=== PATIENT | male | born 2000 | race Caucasian/White ===

== ENCOUNTER → 2023-12-15 | Outpatient (REF) | payer OTHER, SELFPAY | LOC: DHSLP | PROVIDERS: ATTENDING PHYSICIAN Internal Medicine Critical Care Medicine; FAMILY PHYSICIAN Pediatrics | DX: G47.19 Other hypersomnia (principal); G47.00 Insomnia, unspecified; R06.83 Snoring | CPT/HCPCS: 95800 ==

== ENCOUNTER → 2024-09-02 13:19 | Outpatient (REF) | payer BC, SELFPAY | LOC: DHSLP 13:19 | PROVIDERS: ATTENDING PHYSICIAN Internal Medicine Critical Care Medicine; FAMILY PHYSICIAN Internal Medicine | DX: G47.33 Obstructive sleep apnea (adult) (pediatric) (principal); G47.61 Periodic limb movement disorder | CPT/HCPCS: 95810 ==

== ENCOUNTER 2025-05-12 21:27 | Observation (INO) | payer BC, SELFPAY ==
[2025-05-12 18:34] VITALS: BP 159/81
--- NOTE | 2025-05-12 19:01 | ED.GENMED ---
History of Present Illness
General
Chief Complaint: Breathing Problem
Time Seen by Provider: 05/12/25 18:44
History of Present Illness
History of Present Illness:
24-year-old male without significant past medical history presenting to the emergency department for concern of pneumothorax. Patient reports that earlier today was playing football. He went to reach for the ball and then came down to the ground,
landing directly on the football on his left chest. He said that he immediately felt a pop. He has since then had some difficulty breathing. He went to urgent care and they told him that he has a small pneumothorax, advised that he go to the
hospital. Notes pain to the left chest wall over the left back. Denies any history of lung injuries in the past. Denies any additional injuries from the fall. Denies fever or cough. Denies additional acute medical complaints
Phy Exam
Physical Exam
Physical Exam:
General: Well-appearing, no clinical signs of dehydration, nontoxic and in no acute distress
HEENT: protecting airway
Neck: appears supple
CV: Normal heart rate, regular rhythm
Resp: No accessory muscle use, no increased work of breathing, lungs clear to auscultation bilaterally. Generalized tenderness to the left anterior chest wall and left thoracic musculature along the rib angles. No crepitus. No ecchymosis.
Abd: Soft and non-distended, no tenderness to palpation, normal bowel sounds
Extremities: No deformities, no swelling, no erythema, pulses and sensation intact
Neuro: alert, no focal neurologic deficit
: deferred
Rectal: deferred
Psych: Normal affect
Skin: Intact
Course
Orders/Labs/Results
Orders:
Orders
05/12/25 18:43
CR Chest - 2 Views Urgent
Comment:
Reason For Exam: sob after L-chest injury
05/12/25 18:52
Ketorolac [Toradol] 15 mg IV NOW STA
05/12/25 18:57
Complete Blood Count/With Diff Urgent
Comprehensive Metabolic Panel Urgent
Abnormal Lab Results
05/12/25
18:57
Lymphocytes % 18.1 L %
(20.5-51.1)
Chloride 111 H mmol/L
(98-107)
BUN 21 H mg/dl
(9-20)
Glucose 122 H mg/dl
(70-99)
05/12/25 18:57
05/12/25 18:57
Vital Signs
Initial and Last Documented VS:
Initial Vital Signs
Temp Pulse Resp BP Pulse Ox
98.8 F 87 16 159/81 99
05/12/25 18:34 05/12/25 18:34 05/12/25 18:34 05/12/25 18:34 05/12/25 18:34
Last Documented Vital Signs
Temp Pulse Resp BP Pulse Ox
98.8 F 87 16 159/81 99
05/12/25 18:34 05/12/25 18:34 05/12/25 18:34 05/12/25 18:34 05/12/25 19:03
MDM/Problems Addressed
MDM/Problems Addressed:
24-year-old male presenting to the emergency department with concern of pneumothorax after a football injury. Vital signs on arrival are significant for mild hypertension.
On exam, patient is resting comfortably, no acute distress. Oxygen within normal limits. Patient with generalized tenderness to the chest wall. Patient arrives with report from urgent care, discusses a small left apical pneumothorax. Patient
subsequently placed on nasal cannula. Will plan for chest x-ray imaging. Screening laboratory analysis. Toradol administered for pain
20:00 -chest x-ray shows small apical pneumothorax. No obvious signs of rib fractures. Did discuss with CT surgery, plan for observation patient on nasal cannula. Patient and mother updated
*Pulse Oximetry
SaO2: 99
*Critical Care Note
Total Time (30-74mins, 75-104mins- exclusive of procedures): Not Applicable
ED Attending Note
-
Portions of this chart may have been created with voice recognition software.� Occasional wrong word or��sound alike� substitutions may have occurred due to the inherent limitations of voice recognition software.
Discharge Plan
Departure
Prescriptions:
No Action
ibuprofen 400 MG tablet
400 mg PO TID 14 Days 0RF
Referrals:
UNKNOWN - PT DOES,NOT KNOW [Family Provider]
Interventions
Interventions:
*Risk Screen - Suicide Last Done: 05/12/25 18:34
*General Assessment Last Done: 05/12/25 19:33
*Neglect/Abuse Screening Last Done: 05/12/25 18:34
*ED- Fall Risk Assessment Last Done: 05/12/25 19:33
*ED COVID-19 Vaccine History Last Done: 05/12/25 19:33
ED- Cardiac Assessment Last Done: 05/12/25 19:33
ED- Pulmonary Assessment Last Done: 05/12/25 19:33
Discharge Date and Time
Print Language: BERMUDIAN
[2025-05-12] MEDS: TORADOL 15 MG IV (19:09)
[2025-05-12 19:14] LABS: % Basophils 0.5 % (0-2); % Eosinophils 1.6 % (0-6); % Immature Granulocytes 0.3 % (0-0.5); % Lymphocytes 18.1 % (20.5-51.1); % Monocytes 7.6 % (1.7-9.3); % Neutrophils 71.9 % (42.2-75.2); Absolute Eosinophils 0.1 10^3/uL (0-0.7); Absolute Lymphocytes 1.4 10^3/uL (1.2-3.4); Absolute Monocytes 0.6 10^3/uL (0.1-0.6); Absolute Neutrophils 5.5 10^3/uL (1.4-6.5); Hematocrit 40.9 % (39.0-52.0); Hemoglobin 14.4 g/dL (13.0-18.0); Mean Corp Hgb Conc. 35.2 g/dL (33.0-37.0); Mean Corpuscular Volume 82.3 fL (80.0-94.0); Nucleated Red Blood Cells % 0 % (-); Platelet Count 254 10^3/uL (130-400); Red Blood Cell Count 4.97 10^6/uL (4.70-6.10); Red Cell Dist. Width 12.7 % (11.5-14.5); White Blood Cell Count 7.7 10^3/uL (4.8-10.8)
[2025-05-12 19:35] LABS: ALT (SGPT) 40 U/L (0-50); AST (SGOT) 50 U/L (17-59); Albumin 4.9 g/dl (3.5-5.0); Alkaline Phosphatase 69 U/L (38-126); Blood Urea Nitrogen 21 mg/dl (9-20); Calcium 9.3 mg/dl (8.4-10.2); Carbon Dioxide 25 mmol/L (22-30); Chloride 111 mmol/L (98-107); Glucose 122 mg/dl (70-99); Potassium 4.5 mmol/L (3.5-5.1); Sodium 144 mmol/L (135-145); Total Bilirubin 0.8 mg/dl (0.2-1.3); Total Protein 7.8 g/dl (6.3-8.2); eGFR > 60.00
[2025-05-12 20:30] VITALS: BP 143/74
--- NOTE | 2025-05-12 20:41 | HPS.HSE ---
Family Physician
-
Family Physician: NOT KNOW UNKNOWN - PT DOES
Chief Complaint
-
concern of pneumothorax.
History of Present Illness
24M No significant PMHX seen at ER for concern of pneumothorax.
- earlier today was playing football, reachedd for the ball and then came down to the ground, landing directly on the football on left chest.
- he immediately felt a pop. He has since then had some difficulty breathing.
- seen urgent care and they told him that he has a small pneumothorax, advised that he go to the hospital.
- pain radiated from the the left chest wall over the left back.
- Denies any history of lung injuries in the past.
- Denies any additional injuries from the fall.
- Denies fever or cough.
- Denies additional acute medical complaints
Medical History
Past Medical History
Past Medical History: Reports None
Past Surgical History: Reports None
Social History
Tobacco: Non-smoker
Alcohol: Occasional
Family History
Family History: Not pertinent
Allergies / Home Medications
Allergies reflects when Allergies were last updated in [facility].
Home Medications with original date entered in [facility]
Allergy/Medication List:
Allergies
Allergy/AdvReac Type Severity Reaction Status Date / Time
No Known Allergies Allergy Verified 05/12/25 18:32
Home Medications
ibuprofen 400 mg tablet 400 mg PO TID 14 days 07/04/18
Review of Systems
-
Constitutional: Reports No Symptoms
EENT: Reports No Symptoms
Respiratory: Reports See HPI
Cardiac: Reports No Symptoms
Abdomen/GI: Reports No Symptoms
: Reports No Symptoms
Musculoskeletal: Reports See HPI
Skin: Reports No Symptoms
Neurological: Reports No Symptoms
Endocrine: Reports No Symptoms
Hematologic/Lymphatic: Reports No Symptoms
Psych: Reports No Symptoms
Physical Exam
Vital Signs
Vital Signs
Temp Pulse Resp BP Pulse Ox
98.8 F 87 16 159/81 99
05/12/25 18:34 05/12/25 18:34 05/12/25 18:34 05/12/25 18:34 05/12/25 19:03
Physical Exam
General: Well Developed, Well Nourished and No Apparent Distress
HEENT: NormoCephalic and Moist mucous membranes
Respiratory: Clear and Other (Generalized tenderness to the left anterior chest wall and left thoracic musculature along the rib angles. No crepitus. No ecchymosis.)
Cardiac: S1/S2 and Regular Rhythm; No Murmur or Rub
GI: Soft, Non Tender, Non Distended and Normal Bowel Sounds; No Organomegaly
Rectal: Deferred by Provider
Musculoskeletal: No Clubbing, No Cyanosis and No Edema
Skin: No Rash
Neuro: Nonfocal/grossly intact
Laboratory Results
-
05/12/25 18:57
05/12/25 18:57
Laboratory Results
Total Bilirubin 0.8 mg/dl (0.2-1.3) 05/12/25 18:57
AST 50 U/L (17-59) 05/12/25 18:57
ALT 40 U/L (0-50) 05/12/25 18:57
Alkaline Phosphatase 69 U/L (38-126) 05/12/25 18:57
Data Reviewed
-
Diagnostic Radiology: Report Reviewed by me
Impression/Plan
-
Vital Signs
Temp Pulse Resp BP Pulse Ox
98.8 F 87 16 159/81 99
05/12/25 18:34 05/12/25 18:34 05/12/25 18:34 05/12/25 18:34 05/12/25 19:03
Abnormal Labs
05/12/25
18:57
Lymphocytes % 18.1 L
Chloride 111 H
BUN 21 H
Glucose 122 H
CXR: SMALL LEFT APICAL PNEUMOTHORAX (less than 10% lung volume).
No PRIOR hospitalist admission:
ASSESSMENT & PLAN
Traumatic Lt apical 10% PTX; No CXR evidence of Rib Fx
Anterior and posterior chest wall pain due to blunt trauma to chest from sports injury
No signs of significant trauma on exam.
saturating well on NC O21
- c/w NC O2
- stat CXR if desat, tachycardic otherwise follow up CXR in AM
- ER discussed with CT surgery and they agreed with that plan
- CTS consulted
DVT Px: SQH
Full code
OBS TLM
--- NOTE | 2025-05-12 22:14 | PTCARENOTE ---
Patient arrived from ED to [address] [place] [address] on [place] O2, walked on his own to room bed. In no distress at this moment, assessment on going. VSS. Mother at bedside.
[2025-05-12 23:13] VITALS: BP 136/75; BMI 27.5
[2025-05-13 03:05] VITALS: BP 118/63
[2025-05-13 05:45] LABS: Hematocrit 35.7 % (39.0-52.0); Hemoglobin 12.3 g/dL (13.0-18.0); Mean Corp Hgb Conc. 34.5 g/dL (33.0-37.0); Mean Corpuscular Hgb 28.9 pg (27.0-31.0); Mean Platelet Volume 9.2 fL (7.4-10.4); Platelet Count 207 10^3/uL (130-400); Red Blood Cell Count 4.25 10^6/uL (4.70-6.10); Red Cell Dist. Width 13.1 % (11.5-14.5); White Blood Cell Count 5.5 10^3/uL (4.8-10.8)
[2025-05-13 06:10] LABS: Blood Urea Nitrogen 22 mg/dl (9-20); Calcium 8.8 mg/dl (8.4-10.2); Carbon Dioxide 25 mmol/L (22-30); Chloride 113 mmol/L (98-107); Estimated Creatinine Clearance 125 ml/min; Glucose 96 mg/dl (70-99); Potassium 4.1 mmol/L (3.5-5.1); Sodium 143 mmol/L (135-145); eGFR > 60.00
[2025-05-13 07:35] VITALS: BP 128/59
[2025-05-13] MEDS: HEPARIN SC (08:00)
[2025-05-13] MEDS: ROXICODONE 5 MG PO ×2 (10:36→17:26)
--- NOTE | 2025-05-13 11:17 | W.PN.HOSP.TC ---
Addendum entered and electronically signed by Peterson Segundo MD 05/13/25 11:29:
repeat cxr in the am
incentive sage
mom updated via [facility] at 1126am on 05/13
ct surgery updated via [facility]. will be seen by ROAD TRAIN DRIVER later today
Original Note:
Today's Communication/Plan
-
Assessment / Plan
Assessment / Plan
traumatic small apical ptx
-no crepitus noted
-repeat cxr unchanged
-not hypoxic/nor sob
-ctsgy pending
-repeat cxr in the AM
small left sided pleural effusion
-likley secondary to trauma
-will monitor if enlarging may need to be tapped but hope that it begins to reabsorb
Anticipated Discharge: 24 - 48 hours
Subjective/Interval History
-
Date of Service: May 13, 2025
seen and examined. no new complaints. no acute overnight events
feeling much better. no sob. some rib pain left mid clavicular line. more back pain left sided
Objective Data
-
Labs:
Laboratory Results
05/13/25
04:41
WBC 5.5
Hgb 12.3 L
Hct 35.7 L
Plt Count 207
Sodium 143
Potassium 4.1
Chloride 113 H
Carbon Dioxide 25
BUN 22 H
Creatinine 1.1
Glucose 96
Calcium 8.8
Vital Signs:
Vital Signs
Temp Pulse Resp BP Pulse Ox
98.3 F 76 14 128/59 97
05/13/25 07:35 05/13/25 07:35 05/13/25 07:35 05/13/25 07:35 05/13/25 08:00
Physical Exam
-
General: Well Developed and Well Nourished
HEENT: Normocephalic and Atraumatic
Respiratory: Clear to Auscultation
Cardiac: Regular Rhythm and S1/S2
GI: Soft, Nontender, Nondistended and Normal Bowel Sounds
Musculoskeletal: No Clubbing, No Cyanosis and No Edema
Skin: Warm and Dry
Neuro: Awake, Alert, Oriented and AO x 3
Psych: Calm
[2025-05-13 11:53] VITALS: BP 143/59
--- NOTE | 2025-05-13 13:24 | CM ---
Initial assessment completed with patient with mother in room. Patient lives with mother is a 2 story home plus basement with B/B on 2nd and 1/2 bath on , 20 steps to enter. [employer] patient was independent in ADL's and ambulation, drives and works.
Does have a C-PAP, no in-home services. Does have a HC-POA. PCP is [facility] and Pharmacy is [facility] on [address] in [place]. Discharge POC: Home with no needs.
--- NOTE | 2025-05-13 14:14 | W.PN.UPDATE ---
Update Note
Progress Note Update
case reviewed with Dr. Heath and this morning's CXR with 10% PTX unchanged. No further intervention warranted. Remainder of care per primary team.
[2025-05-13 15:30] VITALS: BP 124/68
[2025-05-13 19:00] VITALS: BP 133/68
[2025-05-13] MEDS: HEPARIN 5000 UNITS SC (19:41)
[2025-05-13] MEDS: LIDOCAINE 4% PATCH 1 PATCH TOPICAL (21:22)
[2025-05-13] MEDS: TORADOL 10 MG IV (22:38)
[2025-05-13 23:04] VITALS: BP 121/68
[2025-05-14 03:00] VITALS: BP 108/61
[2025-05-14 07:20] VITALS: BP 115/61
[2025-05-14] MEDS: HEPARIN 5000 UNITS SC (08:06)
--- NOTE | 2025-05-14 10:19 | CM ---
Patient seen at bedside with mother present in [address] [place] [address]. Patient stated that he is eager to go home and mother indicated that they are awaiting for physician to indicate plan. Patient mother to provide transportation home when discharged and patient
does not think he will have any other needs. CM will continue to follow for discharge planning needs.
Plan; home with no needs anticipated at this time.
--- NOTE | 2025-05-14 11:45 | W.PN.HOSP.TC ---
Today's Communication/Plan
-
dc
Assessment / Plan
Assessment / Plan
24yo M with PMHX of myocarditis in 2018, ADHD and anxiety came with pneumothorax on L found on xhest XR in Urgent care. He jayne there after he fell on his side playing the football and herds a pop. found 10% traumatic pneumothoirax with minimally
displaced 6th rib Fx. remained asymptomatic. As discussed with CTX - appropriate for outpatient mgmt, will have chest XR arranged by CTX in 1 week. Refrain from contact sport and lifting weights for 2 months. Patient dillon mother verbalized
understanding
A/P:
#traumatic pneumothorax 2/2 6th L rib Fx
CTX follows
no contact sport
No worsening on follow up XR
appropriate for outpatient mgmt
DVT ppx SCDs
Full code
I have spent at least 58min reviewing chart, test reuslts, communication with conusltants and providing direct patient care
Anticipated Discharge: Within 24 hours
Subjective/Interval History
-
Date of Service: May 14, 2025
Objective Data
-
Vital Signs:
Vital Signs
Temp Pulse Resp BP Pulse Ox
97.6 F 67 16 115/61 97
05/14/25 07:20 05/14/25 07:20 05/14/25 07:20 05/14/25 07:20 05/14/25 07:56
I&O
05/13/25 05/14/25 05/15/25
06:59 06:59 06:59
Intake Total 560 / 560 780 / 780
Balance 560 / 560 780 / 780
Review of Systems
-
History Source: Patient
All other systems: Reviewed and negative
Physical Exam
-
General: No Apparent Distress
HEENT: Normocephalic
Respiratory: Clear to Auscultation and Other (no chest wall deformity observed)
GI: Soft, Nontender and Nondistended
Musculoskeletal: No Clubbing, No Cyanosis and No Edema
Neuro: Awake, Alert, Oriented and AO x 3
Psych: Calm
--- NOTE | 2025-05-14 12:13 | W.DCSUMMARY ---
Discharge Summary
Discharge Data
Date of Admission: 05/12/25
Date of Discharge: 05/14/25
-
Pending Results: No
Hospital Course
24yo M with PMHX of myocarditis in 2018, ADHD and anxiety came with pneumothorax on L found on xhest XR in Urgent care. He jayne there after he fell on his side playing the football and herds a pop. found 10% traumatic pneumothoirax with minimally
displaced 6th rib Fx. remained asymptomatic. As discussed with CTX - appropriate for outpatient mgmt, will have chest XR arranged by CTX in 1 week. Refrain from contact sport and lifting weights for 2 months. Patient mad mother verbalized
understanding
Medically stable to be d/c home
I have spent at least 58min reviewing chart, test reuslts, communication with conusltants and providing direct patient care
Patient was managed for:
#traumatic pneumothorax 2/2 6th L rib Fx
Discharge Plan
-
Patient Disposition: Home (Routine Discharge)
Discharge Diagnosis/Procedures: traumatic pneumothorax
Diet: As tolerated
Others Tests: CXR (PA & lateral) in 1 week
Activity Restrictions/Additional Instructions:
avoid football/sports for 2 months, continue incentive spirometry at home, just nothing that requires valsalva or heavy weight bearing for 2 months.
Referrals:
UNKNOWN - PT DOES,NOT KNOW [Family Provider]
Donna Ayon CRNP [Specified Professional Personl, Cardiac Surgery] - 05/21/25 2:00 pm
Referral Note: obtain chest x-ray on 05/21 before your appointment so results may be reviewed with you
Prescriptions:
Continued
sertraline 100 mg Tablet
100 mg PO DAILY
methylphenidate HCl 20 mg Tablet
20 mg PO DAILY
Discharge Orders:
Discharge Patient (As Directed); Ordered 05/14/25
Ordered By: Ab Patterson
Discharge Date and Time
Print Language: GAMBIAN
[2025-05-14 13:26] VITALS: BP 104/57
== END 2025-05-14 14:28 | disposition home or self-care (01) ==
LOC: 2 SOUTH 21:27
PROVIDERS: ADMITTING PHYSICIAN Internal Medicine; ATTENDING PHYSICIAN Internal Medicine; EMERGENCY PHYSICIAN Student in an Organized Health Care Education/Training Program
DX: S22.32XA Fracture of one rib, left side, initial encounter for closed fracture (principal); S27.0XXA Traumatic pneumothorax, initial encounter; W19.XXXA Unspecified fall, initial encounter; Y93.61 Activity, american tackle football; Y92.9 Unspecified place or not applicable; Y99.8 Other external cause status; I10 Essential (primary) hypertension; J90 Pleural effusion, not elsewhere classified; J98.11 Atelectasis; R06.02 Shortness of breath; M54.9 Dorsalgia, unspecified; F90.9 Attention-deficit hyperactivity disorder, unspecified type; F41.9 Anxiety disorder, unspecified; Z86.79 Personal history of other diseases of the circulatory system; Z79.1 Long term (current) use of non-steroidal anti-inflammatories (NSAID)
CPT/HCPCS: 71045; 71046; 71101; 80048; 80053; 85025; 85027; 96374; 99285; G0378

== ENCOUNTER → 2025-05-21 13:17 | Outpatient (REF) | payer BC, SELFPAY | LOC: RAD 13:17 | PROVIDERS: ATTENDING PHYSICIAN Nurse Practitioner; FAMILY PHYSICIAN Physician Assistant Medical | DX: J93.9 Pneumothorax, unspecified (principal) | CPT/HCPCS: 71046 ==